=== PATIENT | male | born 2005 | race African-American/Black ===

== ENCOUNTER 2025-09-04 00:20 | Emergency (ER) | payer MEDICAID, SELFPAY ==
[2025-09-04] MEDS ORDERED: Ibuprofen 200 MG TAB ONE (01:03)
== END 2025-09-04 01:10 | disposition home or self-care (01) ==
LOC: NAV ERS 00:20
DX: S46.912A Strain of unspecified muscle, fascia and tendon at shoulder and upper arm level, left arm, initial encounter (principal); F17.200 Nicotine dependence, unspecified, uncomplicated; X50.9XXA Other and unspecified overexertion or strenuous movements or postures, initial encounter
CPT/HCPCS: 99283